=== PATIENT | female | born 1955 | race Caucasian/White ===

== ENCOUNTER 2018-03-05 04:25 | Emergency (ER) | payer OTHER | END 2018-03-05 12:31 | disposition home or self-care (01) | LOC: FTE 12:31 | DX: T81.32XA Disruption of internal operation (surgical) wound, not elsewhere classified, initial encounter (principal); I50.9 Heart failure, unspecified; R40.2412 Glasgow coma scale score 13-15, at arrival to emergency department; Y73.8 Miscellaneous gastroenterology and urology devices associated with adverse incidents, not elsewhere classified | CPT/HCPCS: 99282 ==